=== PATIENT | female | born 1945 | race Caucasian/White ===

== ENCOUNTER 2017-08-02 12:27 | Inpatient (IN) | payer MEDICARE, BC ==
[~2017-08-02] VITALS: Ht 170.2 cm; Wt 77.6 kg
[2017-08-02] MEDS ORDERED: PROPAFENONE HC150 MG PO (12:58)
[2017-08-02] MEDS ORDERED: TOPROL XL25 MG PO (12:58)
[2017-08-02] MEDS ORDERED: MOBIC7.5 MG PO (12:58)
[2017-08-02] MEDS ORDERED: FEMARA2.5 MG PO (12:59)
[2017-08-02] MEDS ORDERED: BAYER CHEWABLE81 MG PO (12:59)
[2017-08-02] MEDS ORDERED: VITAMIN B-122500 MCG PO (12:59)
[2017-08-02] MEDS ORDERED: COUMADIN3 MG PO (13:00)
[2017-08-02] MEDS ORDERED: CARDIZEM60 MG PO (13:00)
[2017-08-02] MEDS ORDERED: HYDROCODONE-APA1 TAB PO (13:01)
[2017-08-02] MEDS ORDERED: OMEPRAZOLE20 M1 PO (13:02)
[2017-08-02 13:13] VITALS: BP 126/65; BMI 26.8
[2017-08-02 13:32] LABS: BASOPHILS 0.2 % (0-2); HEMATOCRIT 34.2 % (36.0-48.0); HEMOGLOBIN 10.8 g/dL (12-16); IMMATURE GRANULOCYTES 0.2 % (0-5); MCH 31.6 pg (26.0-34.0); MCHC 31.6 g/dL (31.0-37.0); MEAN PLATELET VOLUME 11.3 fL (7.4-10.4); MONOCYTES 8.1 % (2-11); NEUTROPHILS 77.5 % (40-80); PLATELET COUNT 215 10x3/uL (130-400); RBC 3.42 10x6/uL (4.00-5.40); RDW 16.3 % (11.5-14.5); WBC 6.3 10x3/uL (4.8-10.8)
[2017-08-02 13:35] LABS: HELICOBACTER PYLORI IGG POSITIVE (NEGATIVE)
[2017-08-02 13:38] LABS: ALBUMIN 3.1 g/dL (3.4-5.0); ANION GAP 12.9 mmol/L (8-16); BILIRUBIN - TOTAL 0.54 mg/dL (0.2-1.3); CALCIUM 8.6 mg/dL (8.5-10.1); CREATININE - SERUM 0.9 mg/dL (0.6-1.3); POTASSIUM - SERUM 3.9 mmol/L (3.5-5.1); PROTEIN - SERUM 6.1 g/dL (6.4-8.2)
[2017-08-02 16:20] VITALS: BP 114/61
[2017-08-02 16:53] LABS: INR 3.24 (0.85-1.17); PROTIME 32.3 SECONDS (11.6-15.0)
[2017-08-02 22:28] VITALS: BP 126/75
[2017-08-03 02:16] VITALS: BP 117/53
[2017-08-03 04:00] VITALS: BP 127/91
[2017-08-03 08:17] VITALS: BP 128/81
[2017-08-03 11:47] VITALS: BP 109/62
[2017-08-03 14:36] VITALS: BMI 26.8
[2017-08-03 17:21] VITALS: BP 139/76
[2017-08-03 21:43] VITALS: BP 138/102
[2017-08-04 00:10] VITALS: BP 122/44
[2017-08-04 04:21] VITALS: BP 148/75
[2017-08-04 05:56] LABS: INR 3.24 (0.85-1.17); PROTIME 32.3 SECONDS (11.6-15.0)
[2017-08-04 08:34] VITALS: BP 146/58
[2017-08-04 12:05] VITALS: BP 150/90
[2017-08-04] MEDS ORDERED: FLAGYL250 MG PO (13:07)
[2017-08-04] MEDS ORDERED: VIBRAMYCIN 100100 MG PO (13:07)
[2017-08-04] MEDS ORDERED: CARAFATE1 G/10 ML PO (13:09)
[2017-08-04] MEDS ORDERED: PROTONIX40 MG PO (13:09)
[2017-08-04 14:34] VITALS: Ht 170.2 cm; Wt 77.6 kg
[2017-08-04 16:07] VITALS: BP 126/78
== END 2017-08-04 16:00 | disposition home or self-care (01) | DRG 392 ==
LOC: D.OPS 12:27 → D.MS 12:29
PROVIDERS: Internal Medicine Gastroenterology; Legal Medicine
PROC: 0DJ08ZZ Inspection of Upper Intestinal Tract, Via Natural or Artificial Opening Endoscopic (ICD-10-PCS; principal; 2017-08-02 15:30)
DX: K92.81 Gastrointestinal mucositis (ulcerative) (principal); C79.51 Secondary malignant neoplasm of bone; D64.9 Anemia, unspecified; I10 Essential (primary) hypertension; K21.9 Gastro-esophageal reflux disease without esophagitis; G62.9 Polyneuropathy, unspecified; F17.200 Nicotine dependence, unspecified, uncomplicated; K29.70 Gastritis, unspecified, without bleeding; K25.9 Gastric ulcer, unspecified as acute or chronic, without hemorrhage or perforation; B96.81 Helicobacter pylori [H. pylori] as the cause of diseases classified elsewhere; I48.91 Unspecified atrial fibrillation; C50.919 Malignant neoplasm of unspecified site of unspecified female breast; K22.70 Barrett's esophagus without dysplasia; Z79.01 Long term (current) use of anticoagulants

== ENCOUNTER 2017-10-03 13:08 | Day surgery (SDC) | payer MEDICARE, BC ==
[~2017-10-03] VITALS: Ht 170.2 cm; Wt 70.5 kg
--- NOTE | ~2017-10-03 | OP ---
PATIENT NAME: RENAE ISLAS MEDICAL RECORD: [id number] :49 LOCATION:[facility] ADMISSION DATE: SURGEON: PAOLA BOUDREAUX DO DATE OF OPERATION: 10/03/2017 PROCEDURE: EGD with biopsies. INDICATION FOR PROCEDURE: Epigastric abdominal pain, past gastritis on EGD, and abnormal findings on imaging. SCOPE: Olympus video gastroscope. MEDICATIONS: Propofol 140 mg IV per anesthesia. ESTIMATED BLOOD LOSS: Less than 3 mL. COMPLICATIONS: None. FINDINGS: Informed consent was given. The patient was made comfortable with the above medication. After reaching an adequate level of sedation by slow IV push, the patient was placed on her left side. The endoscope was advanced under direct visualization through the mouth to the second portion of the duodenum. The upper, middle, and lower thirds of the esophagus appeared normal. At the GE junction, there was evidence of probable long-segment Bray's esophagus with few separate tongues. Cold forceps biopsies were taken to confirm this diagnosis. The endoscope was advanced beyond the GE junction into the stomach, where a large amount of retained food and fluid was visualized. The entire stomach exhibited a severe gastritis picture with diffuse edematous, congested, enlarged gastric folds with multiple sites of ulcerations and petechial sites that were extremely friable. As you approach the antrum and prepyloric region, there was thickening of the folds and hardening of the sites of the polk of the colon that made passage of the scope somewhat difficult. This is likely the cause for her symptoms as well as her retained food as this is causing a partial gastric outlet syndrome picture. The endoscope was able to be advanced through to the pylorus and into the duodenum. The visualized portions of the first and second portion of the duodenum appeared normal. There was a stenosed channel due to the enlarged and thickened folds that was approximately 9 cm in length. It was located at approximately 57 cm to 65 cm from the incisors. The tract was extremely friable and blood could be seen on the mucosa after passage of the endoscope. Multiple biopsies were taken from multiple sites within the stomach to help confirm diagnosis. The endoscope was withdrawn from the patient. The patient tolerated the procedure well and there were no complications. IMPRESSION: 1. 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 Biopsies taken. 2. Retained food and fluid within the stomach due to a partial outlet obstruction. 3. Severe gastritis with thickened folds and ulcerated site as well as hardening of the stomach. This is concerning for a possible lymphoma versus a malignant process. Multiple biopsies were taken to help establish a diagnosis. 4. Partial gastric outlet obstruction due to the hardening and thickening of the stomach. PLAN AND RECOMMENDATIONS: OPERATIVE REPORT [id number] RENAE ISLAS 1. Discharge home when recovery parameters are met. 2. Followup biopsy specimen results. 3. Recommend a liquid or pureed diet until a diagnosis can be made. 4. Need to consider routes of nutrition. Regarding the partial gastric outlet obstruction, a stent could be considered for temporary measures once a diagnosis is made and plan of treatment or therapy is being considered. Other potential therapies would include surgery or IV nutrition temporarily. Also, potentially, a jejunal feeding tube could be considered. Time is likely of the essence as if something is not done soon, passage of an endoscope through the distal stomach may become extremely difficult to impossible due to the ongoing process. 5. Follow up with Dr. Marin as scheduled. TRANSINT:[id number] Voice Confirmation ID: [id number] DOCUMENT ID: [id number] PAOLA BOUDREAUX DO at 1119 CC: [id number] DICTATION DATE: 10/03/17 1549 RAKER BUFFING WHEEL: 10/03/17 [address] [facility] 10/03/17 [id number] [place] [address]
[~2017-10-03 13:08] MED LIST: BAYER CHEWABLE81 MG PO; CARAFATE1 G/10 ML PO; CARDIZEM60 MG PO; COUMADIN3 MG PO; FEMARA2.5 MG PO; FLAGYL250 MG PO; HYDROCODONE-APA1 TAB PO; MOBIC7.5 MG PO; OMEPRAZOLE20 M1 PO; PROPAFENONE HC150 MG PO; PROTONIX40 MG PO; TOPROL XL25 MG PO; VIBRAMYCIN 100100 MG PO; VITAMIN B-122500 MCG PO
[2017-10-03 13:42] LABS: BASOPHILS 0.6 % (0-2); EOSINOPHILS 0.1 % (0-7); HEMATOCRIT 40.7 % (36.0-48.0); HEMOGLOBIN 13.1 g/dL (12-16); IMMATURE GRANULOCYTES 0.3 % (0-5); LYMPHOCYTES 14.8 % (15-50); MCHC 32.2 g/dL (31.0-37.0); MCV 96.4 fL (80.0-100.0); MEAN PLATELET VOLUME 10.1 fL (7.4-10.4); MONOCYTES 9.3 % (2-11); NEUTROPHILS 74.9 % (40-80); PLATELET COUNT 239 10x3/uL (130-400); RBC 4.22 10x6/uL (4.00-5.40); RDW 17.3 % (11.5-14.5); WBC 6.7 10x3/uL (4.8-10.8)
[2017-10-03 13:46] LABS: APTT 25.3 SECONDS (22.8-39.4); INR 1.15 (0.85-1.17); PROTIME 14.3 SECONDS (11.6-15.0)
[2017-10-03 13:47] LABS: CALCIUM 7.9 mg/dL (8.5-10.1); CARBON DIOXIDE 30.9 mmol/L (21.0-32.0); CREATININE - SERUM 0.9 mg/dL (0.6-1.3)
[2017-10-03 13:49] LABS: ANION GAP 10.1 mmol/L (8-16)
[2017-10-03] MEDS ORDERED: CYMBALTA30 MG PO (14:11)
[2017-10-03] MEDS ORDERED: NEURONTIN 300300 MG PO (14:11)
[2017-10-03 14:13] VITALS: BP 125/78; Ht 170.2 cm; Wt 70.5 kg
== END 2017-10-03 17:10 | disposition home or self-care (01) ==
LOC: D.OPS 13:08
PROVIDERS: Anesthesiology
DX: R10.13 Epigastric pain (principal); K22.70 Barrett's esophagus without dysplasia; K29.70 Gastritis, unspecified, without bleeding; K31.1 Adult hypertrophic pyloric stenosis; F17.200 Nicotine dependence, unspecified, uncomplicated; I25.10 Atherosclerotic heart disease of native coronary artery without angina pectoris; Z01.812 Encounter for preprocedural laboratory examination

== ENCOUNTER 2017-10-24 13:12 | Day surgery (SDC) | payer MEDICARE, BC ==
[~2017-10-24] VITALS: Ht 170.2 cm; Wt 65.8 kg
--- NOTE | ~2017-10-24 | OP ---
PATIENT NAME: RENAE ISLAS MEDICAL RECORD: [id number] :49 LOCATION:[facility] ADMISSION DATE: SURGEON: MIKAL GARCIA MD DATE OF OPERATION: 10/24/2017 PREOPERATIVE DIAGNOSES: 1. Partial gastric outlet obstruction. 2. Gastric cancer. 3. Atrial fibrillation. POSTOPERATIVE DIAGNOSES: 1. Partial gastric outlet obstruction. 2. Gastric cancer. 3. Atrial fibrillation. PROCEDURES: 1. Right subclavian vein port placement. 2. Fluoroscopic interpretation. SURGEON: Mikal Garcia MD REPORT OF PROCEDURE: The patient's right chest was prepped and draped in sterile fashion. A total of 10 mL of 1% lidocaine was infused into the subcutaneous tissues. A needle was used to cannulate the right subclavian vein. The guidewire was advanced with ease. Fluoro was used to note that the wire was in good position in the venous system. A skin incision was made on the left superolateral chest and a subcutaneous pouch was made over the pectoral fascia. A catheter was tunneled between this pouch and the wire exit site. The port was sutured to the pectoral fascia using interrupted 2-0 Prolenes times 2. The catheter was cut with a beveled tip at 27 cm. The dilator trocar device was placed over the wire and the wire and dilator were removed. The catheter tip was advanced through the trocar and the trocar was removed. The catheter tips rested in good position at the right atrial-superior vena caval junction. The catheter aspirated nonpulsatile dark blood and flushed easily with heparinized saline. The subcutaneous tissues were reapproximated with interrupted 3-0 Vicryl and the skin was closed with running subcutaneous 5-0 Monocryl. We then accessed the port and flushed it one last time. At this point, a dressing was applied. COMPLICATIONS: None. CONDITION: Stable. ANESTHESIA: TIVA and local. BLOOD LOSS: Minimal. TRANSINT:[id number] Voice Confirmation ID: [id number] DOCUMENT ID: [id number] OPERATIVE REPORT [id number] RENAE ISLAS MIKAL GARCIA MD at 0922 CC: JOSELUIS GAMEZ MD and PAOLA BOUDREAUX DO [id number] DICTATION DATE: 10/24/17 170 DISH MACHINE OPERATOR: 10/24/17 1808 [facility] [place] 10/24/17 [facility] [address] [id number]
--- NOTE | ~2017-10-24 | OP ---
PATIENT NAME: RENAE SILAS MEDICAL RECORD: [id number] :47 LOCATION:D.END ADMISSION DATE: SURGEON: PAOLA BOUDREAUX DO DATE OF OPERATION: 10/24/2017 PROCEDURE: EGD with duodenal stent placement. INDICATION FOR PROCEDURE: Malignant gastric outlet obstruction. SCOPE: Olympus therapeutic endoscope. MEDICATIONS: The patient was given propofol per anesthesia. Please see anesthesia report (TIVA). ESTIMATED BLOOD LOSS: Minimal. COMPLICATIONS: None. FINDINGS: Informed consent was given. The patient was made comfortable with the above medication. After reaching an adequate level of sedation by slow IV push, the patient was placed in the supine position. The endoscope was advanced under direct visualization through the mouth to the distal stomach. Appearances were consistent with past findings of severe metastatic burden of the stomach. This tapered down to the gastroduodenal segment where it was difficult to determine exactly where you are. The tumor burden was significant and there was a narrowing down to approximately 10 mm in diameter. Irregular gastroscope could pass through this opening, but the therapeutic scope could not. Balloon dilations were attempted from 10 mm up to 16 mm diameter, but the therapeutic scope still could not be passed. Using combination of guidewire and contrast in the bowel and the strictured segment, the narrowed segment due to tumor burden was bypassed with the guidewire. At this time, a duodenal self-expanding metal stent, which was fully uncovered, was placed over the guidewire and around the duodenal bend. The stent measured 120 mm in length and had a 20 mm diameter. After the stent was placed, positioning was confirmed using fluoroscopy. The waist was in the center of the stent with the distal portion around the bend of the duodenum and the proximal portion within the stomach. Appearances were satisfactory. The endoscope was withdrawn from the patient. The patient tolerated the procedure well and there were no complications. IMPRESSION: Severe tumor burden from metastatic breast cancer to stomach, causing a partial gastric outlet obstruction, status post self-expanding metal stent placement from the stomach to the duodenum. PLAN AND RECOMMENDATIONS: 1. Discharge home when recovery parameters are met. 2. Recommend a liquid diet for one week's time followed by a soft diet as tolerated. 3. Continue current medications. 4. The patient is set to begin chemotherapy tomorrow. It is unknown what chemotherapy will do to the tumor burden, but the stent is expected to be permanent. 5. Follow up in the GI clinic as needed. TRANSINT:[id number] Voice Confirmation ID: [id number] DOCUMENT ID: [id number] OPERATIVE REPORT [id number] RENAE ISLAS NATHAN A DO at 1524 CC: [id number] DICTATION DATE: 10/24/17 180 LAUNDRY CLERK: 10/24/17 1821 [facility] 10/24/17 [id number] [place] [address]
[~2017-10-24 13:12] MED LIST changes: +CYMBALTA30 MG PO; +NEURONTIN 300300 MG PO
[2017-10-24 14:45] VITALS: BP 120/67; Ht 170.2 cm; Wt 65.8 kg
[2017-10-24 14:50] LABS: BASOPHILS 0.3 % (0-2); EOSINOPHILS 0.3 % (0-7); HEMATOCRIT 37.6 % (36.0-48.0); HEMOGLOBIN 12.2 g/dL (12-16); IMMATURE GRANULOCYTES 0.4 % (0-5); LYMPHOCYTES 13.6 % (15-50); MCHC 32.4 g/dL (31.0-37.0); MCV 95.4 fL (80.0-100.0); MEAN PLATELET VOLUME 11.1 fL (7.4-10.4); MONOCYTES 7.2 % (2-11); NEUTROPHILS 78.2 % (40-80); RBC 3.94 10x6/uL (4.00-5.40); RDW 17.7 % (11.5-14.5); WBC 7.5 10x3/uL (4.8-10.8)
[2017-10-24 14:54] LABS: PLATELET COUNT 190 10x3/uL (130-400)
[2017-10-24] MEDS ORDERED: ELIQUIS2.5 MG PO (14:59)
[2017-10-24 15:33] LABS: ALBUMIN 3.1 g/dL (3.4-5.0); ALKALINE PHOSPHATASE 67 U/L (46-116); ALT (SGPT) 17 U/L (10-68); CALC OSMOLALITY 286 mosm/kg (275-300); CALCIUM 7.3 mg/dL (8.5-10.1); CARBON DIOXIDE 27.7 mmol/L (21.0-32.0); CHLORIDE - SERUM 104 mmol/L (98-107); CREATININE - SERUM 0.8 mg/dL (0.6-1.3); GLUCOSE 101 mg/dL (74-106); POTASSIUM - SERUM 3.4 mmol/L (3.5-5.1); SODIUM 144 mmol/L (136-145); UREA NITROGEN 12 mg/dL (7-18); eGFR NON AFRICAN AMERICAN 75 mL/min (90-120)
[2017-10-24 15:34] LABS: INR 1.03 (0.85-1.17); PROTIME 13.1 SECONDS (11.6-15.0)
[2017-10-24 15:49] LABS: APTT 21.5 SECONDS (22.8-39.4)
[2017-10-25] MEDS ORDERED: CARDIZEM60 MG PO (08:31)
== END 2017-10-24 20:20 | disposition home or self-care (01) ==
LOC: D.ENDO 13:12
PROVIDERS: Anesthesiology
DX: C16.9 Malignant neoplasm of stomach, unspecified (principal); K31.1 Adult hypertrophic pyloric stenosis; I48.91 Unspecified atrial fibrillation; Z01.812 Encounter for preprocedural laboratory examination

== ENCOUNTER 2017-10-25 00:56 | Inpatient (IN) | payer MEDICARE, BC ==
[~2017-10-25] VITALS: Ht 170.2 cm; Wt 69.2 kg
--- NOTE | ~2017-10-25 | OP ---
PATIENT NAME: RENAE ISLAS MEDICAL RECORD: [id number] :47 LOCATION:[facility] ADMISSION DATE:10/25/17 SURGEON: CURT ELIAS MD DATE OF OPERATION: 11/05/2017 PROCEDURE: DC cardioversion. INDICATION: Atrial fibrillation. PROCEDURE IN DETAIL: IV conscious sedation was performed per anesthesia. Continuous heart rate, O2 saturation, and blood pressure monitoring all undertaken, all of which remains stable. She received 1 shock at 275 joules restoring sinus rhythm. OVERALL IMPRESSION: Successful DC cardioversion from atrial fibrillation to sinus rhythm. TRANSINT:[id number] Voice Confirmation ID: [id number] DOCUMENT ID: [id number] CURT ELIAS MD at 0956 CC: [id number] DICTATION DATE: 11/05/17 0943 INKER: 11/05/17 1219 [facility] 11/06/17 [id number] [place] [address]
--- NOTE | ~2017-10-25 | OP ---
PATIENT NAME: RENAE ISLAS MEDICAL RECORD: [id number] :47 LOCATION:[facility] ADMISSION DATE:10/25/17 SURGEON: MIKAL GARCIA MD DATE OF OPERATION: 10/30/2017 PREOPERATIVE DIAGNOSES: 1. Gastric outlet obstruction. 2. Metastatic breast cancer to the stomach. 3. Gastric ulcers. 4. Gastritis. 5. Atrial fibrillation. POSTOPERATIVE DIAGNOSES: 1. Gastric outlet obstruction. 2. Metastatic breast cancer to the stomach. 3. Gastric ulcers. 4. Gastritis. 5. Atrial fibrillation. PROCEDURE: A 20-Ku[place]i percutaneous endoscopic jejunostomy placement. SURGEON: Mikal Garcia MD REPORT OF PROCEDURE: The patient's abdomen was prepped and draped. An Olympus endoscope was advanced through the mouth and esophagus. I was able to pass into the stomach and could see the stent extending out of the patient's duodenum. I found an area on the antrum of the stomach to house our tube. A total of 5 mL of 1% lidocaine was infused into the subcutaneous tissues. A skin incision was then made with an 11 blade. Angiocath needle was placed through the abdominal wall into the gastric lumen. A wire was passed through this Angiocath. The wire was grasped and pulled out through the patient's mouth and esophagus. At this point, we fixed this to the 20-Ku[place]i PEG tube. The PEG tube was pulled through the mouth and esophagus through the anterior abdominal wall and gastric lumen and out through the abdominal wall. Once in position, the endoscope was advanced back through the patient's endoscopy. We were able to pass this through the endoscopy tube into the PEG tube and out through the external orifice of the PEG tube. The PEG tube was then pulled free. We then affixed the Endo snare to a 20-Ku[place]i gastrojejunostomy tube. The jejunal end was affixed to the snare and pulled through the anterior abdominal wall and pulled tightly until the entire tube was in the gastric lumen. The balloon was infused with a total of 10 mL of sterile water. Once the tube was in place, it was pulled up to the anterior abdominal wall. The endoscope was placed back into the abdomen. We were able to position the jejunal portion of the tube through the stent into the second and third portion of the duodenum. At this point, I could not get the scope or the jejunal portion of the tube to pass any further. There was a lot of inflammation to the tissue. I went ahead and shot some contrast through the jejunal end and I could see that there was some passage of contrast through the third portion of the duodenum. I did not feel there was complete obstruction. I went ahead and just left the distal end of the tube in this position. We then removed the insufflation from the stomach and the endoscope was removed. COMPLICATIONS: None. CONDITION: Stable. OPERATIVE REPORT [id number] RENAE ISLAS ANESTHESIA: TIVA. BLOOD LOSS: Minimal. TRANSINT:[id number] Voice Confirmation ID: [id number] DOCUMENT ID: [id number] MIKAL GARCIA MD at 1144 CC: JOSELUIS GAMEZ MD and PAOLA BOUDREAUX DO [id number] DICTATION DATE: 10/30/17 1140 PERIANESTHESIA MANAGER: 10/30/17 1252 ADM IN [facility] [address] [place] [address]
--- NOTE | ~2017-10-25 | HEMODYNAMI ---
PATIENT:RENAE ISLSA MEDICAL RECORD: [id number] : 49 LOCATION:[facility] ADMISSION DATE: 10/25/17 Generatedon:11/06/20178:18 Patient name: RENAE ISLAS Patient #: [id number] SSN: : 1945 Date of study: 11/05/2017 Page: Of Hemodynamic Procedure Report Patient Data Patient Demographics Procedure consent was obtained First Name: RENAE Gender: Female Last Name: ROSHAN : 1945 [facility] Initial: A Age: 72 year(s) Patient #: [id number] Race: Unknown Additional ID: [id number] Contact details Address: [address] [place] [address] State: [place] City: [place] Zip code: [address] Admission Admission Data Admission Date: 10/25/2017 Admission Time: 6:13 Room #: 2202 Procedure Procedure Types Cath Procedure Diagnostic Procedure Cardioversion External Procedure Description Procedure Date Procedure Date: 11/05/2017 Procedure Start Time: 9:42 Procedure End Time: 9:48 Procedure Staff Name Function Britt Juarez RT Monitor Virgil Prakash RT Cashier Clerk Jorge Augustine RN Nurse Jorje Martinez MD Additional personnel Иван Espinosa MD Performing Physician Procedure Data Cath Procedure Fluoroscopy Diagnostic fluoroscopy Total fluoroscopy Time: 0 time: 0 min min Diagnostic fluoroscopy Total fluoroscopy dose: 0 dose: 0 mGy mGy Contrast Material Contrast Material Type Amount (ml) Isovue 300 0 Estimated blood loss: 0 ml Procedure Complications No complications Procedure Medications Medication Administration Route Dosage Oxygen etCO2 Nasal cannula 6 l/min Refer to Anesthesia Notes for Sedation Medications Hemodynamics Rest Pre Cath Intra NCS Post Cath Vital Signs Time Heart Resp SPO2 etCO2 NIBP Rhythm Pain Sedation Rate (ipm) (%) (mmHg) (mmHg) Status Level (bpm) 9:39:51 76 24 91 14.3 104/64(80) NSR 0 (11) 10(A) , No pain 9:44:29 72 19 98 27.1 103/52(76) NSR 0 (11) 10(A) , No pain 9:47:17 70 12 98 27.9 84/54(63) NSR 0 (11) 10(A) , No pain Medications Time Medication Route Dose Verified Delivered Reason Notes Effectiven ess by by 9:27:05 Oxygen etCO2 6 Иван Patel Per Nasal l/min Jesús Augustine RN physician cannula 9:27:13 Refer to Иван Patel Per Anesthesia Jesús Augustine RN physician Notes for Sedation Medications Procedure Log Time Note 9:15:12 Virgil Prakash RT(R) sent for patient. Start room use. 9:24:18 Time tracking: Regular hours (M-F 7:00 - 5:00) 9:24:23 Plan of Care:Hemodynamics will remain stable., Cardiac rhythm will remain stable., Comfort level will be maintained., Respiratory function will remain adequate., Patient/ family verbilizes understanding of procedure., Procedure tolerated without complication., Recovers from procedure without complications.. 9:27:05 Oxygen 6 l/min etCO2 Nasal cannula was administered by Jorge Augustine RN; Per physician; 9:27:13 Refer to Anesthesia Notes for Sedation Medications was administered by Jorge Augustine RN; Per physician; 9:32:25 Warm blankets applied, and richar hugger turned on for patient comfort. 9:32:25 Patient received from Med/Surg to CCL 1 Alert and oriented. Tansferred to table in Supine position. 9:32:26 Correct patient and procedure confirmed by team. 9:32:27 Signed procedure consent form obtained from patient. 9:32:28 ECG and BP/O2 sat monitors applied to patient. 9:32:29 Full Disclosure recording started 9:39:00 Vital chart was started 9:39:24 Rhythm: atrial fibrillation 9:39:34 H&P Date Dictated: 11/05/2017 Within 30 days and on chart., H&P Addendum completed by physician on day of procedure. (MUST COMPLETE FOR ALL OUTPATIENTS). 9:39:36 Pre-procedure instructions explained to patient. 9:39:37 Pre-op teaching completed and patient verbalized understanding. 9:39:41 Family unavailable. 9:39:52 Patient NPO since Midnight. 9:39:55 Is the patient allergic to Iodine/contrast media? No. 9:40:01 Is patient on blood thinner?Yes 9:40:06 ACC The patient was administered the following blood thiners within the last 24 hours: Eliquis 9:40:16 Patient diabetic? No. 9:40:22 Previous problem with sedation/anesthesia? No ? 9:40:24 Snore? Yes 9:40:26 Sleep apnea? No 9:40:27 Deviated septum? No 9:40:28 Sticks out tongue? Yes 9:40:28 Opens mouth fully? Yes 9:40:36 Airway obstruction? No ? 9:40:44 Dentures? No ? 9:40:49 Patient pain scale 0/10 ?. 9:41:15 IV patent on arrival in port with 0.9% NaCl at KVO. 9:41:17 Lab results completed and on chart. 9:41:20 Alarms reviewed by R. N. 9:41:20 Sharps counted by scrub and verified by R.N. 9:41:22 Final Timeout: patient, procedure, and site verified with staff and physician. All members of the team are in agreement. 9:41:22 --------ALL STOP TIME OUT------ 9:41:29 Physical assessment completed. ASA score P 4 - A patient with severe systemic disease that is a constant threat to life as per Иван Espinosa MD. 9:41:37 Sedation plan: TIVA Medication:Propofol 9:42:24 Jorje Martinez MD present and monitoring patient for TIVA. 9:42:27 Procedure started. 9:42:28 Quick combo pads placed on patients chest and back. 9:42:32 Defibrillator synced and charged to 275 Joules. 9:42:34 Shock delivered. 9:42:39 Patient cardioverted to sinus rhythm . 9:42:44 Procedure ended.(Physican Out) 9:43:48 Fluoroscopy time 00.00 minutes. 9:43:50 Fluoroscopy dose: 0 mGy 9:43:50 Flurop Dose total: 0 9:43:52 Contrast amount:Isovue 300 0ml. 9:44:22 Post-procedure physical assessment completed. ASA score P 2 - A patient with mild systemic disease as per Иван Espinosa MD. 9:44:34 Post Procedure Pulses reassessed and unchanged 9:44:37 Post procedure rhythm: unchanged. 9:44:40 Estimated blood loss: 0 ml 9:44:42 Patient needs reinforcement of post procedure teaching. 9:44:42 Post procedure instruction explained to patient.Patient verbalizes understanding. 9:44:48 Procedure and supply charges have been captured, reviewed, submitted and are correct. 9:44:51 Procedure Complication : No complications 9:45:10 Quick Combo opened to sterile field. 9:47:53 See physician's report for complete and final results. 9:47:53 Vital chart was stopped 9:47:59 Report given to Med/Surg. 9:48:02 Patient transfered to Med/Surg with Bed. 9:48:04 Full Disclosure recording stopped 9:48:04 Procedure ended. 9:48:46 End room use (Document Last) Device Usage Item Manufacture Quantity Catalog Hospital Part Current Minimal Lot# / Name Number Charge Number Stock Stock Brie al# Code Quick [employer] 1 [id number] Combo Signature Audit [place] Stage Time Signature Unsigned Intra-Procedure 11/05/2017 Virgil Prakash RT(R) 9:49:04 AM RT(R) 11/06/2017 8:17:41 AM Intra-Procedure 11/06/2017 Virgil Prakash 8:18:22 AM RT(R) Signatures Monitor : Britt Signature : Counts RT Date : Time : [address] [id number]
[~2017-10-25 00:56] MED LIST changes: +ELIQUIS2.5 MG PO
[2017-10-25 01:58] LABS: BASOPHILS 0.1 % (0-2); EOSINOPHILS 0 % (0-7); HEMATOCRIT 36.9 % (36.0-48.0); HEMOGLOBIN 12.1 g/dL (12-16); IMMATURE GRANULOCYTES 0.3 % (0-5); MCH 30.8 pg (26.0-34.0); MCHC 32.8 g/dL (31.0-37.0); MCV 93.9 fL (80.0-100.0); MEAN PLATELET VOLUME 10.7 fL (7.4-10.4); MONOCYTES 6.3 % (2-11); NEUTROPHILS 87.3 % (40-80); PLATELET COUNT 228 10x3/uL (130-400); RBC 3.93 10x6/uL (4.00-5.40); RDW 17.2 % (11.5-14.5); WBC 10.7 10x3/uL (4.8-10.8)
[2017-10-25 02:11] LABS: ALBUMIN 2.8 g/dL (3.4-5.0); ALKALINE PHOSPHATASE 209 U/L (46-116); ALT (SGPT) 164 U/L (10-68); AMYLASE - SERUM 119 U/L (25-115); CALC OSMOLALITY 285 mosm/kg (275-300); CALCIUM 7.4 mg/dL (8.5-10.1); CHLORIDE - SERUM 104 mmol/L (98-107); CREATININE - SERUM 0.8 mg/dL (0.6-1.3); GLUCOSE 133 mg/dL (74-106); LIPASE 666 U/L (73-393); PROTEIN - SERUM 6.1 g/dL (6.4-8.2); SODIUM 143 mmol/L (136-145); UREA NITROGEN 11 mg/dL (7-18); eGFR NON AFRICAN AMERICAN 75 mL/min (90-120)
[2017-10-25 02:12] LABS: POTASSIUM - SERUM 2.7 mmol/L (3.5-5.1)
[2017-10-25 02:42] LABS: APPEARANCE HAZY (CLEAR); BILIRUBIN NEGATIVE (NEGATIVE); COLOR YELLOW (YELLOW); GLUCOSE NEGATIVE (NEGATIVE); KETONE MODERATE mg/dL (NEGATIVE); NITRITE NEGATIVE (NEGATIVE); PROTEIN 1+ mg/dL (NEGATIVE); SPECIFIC GRAVITY 1.015 (1.005-1.020)
[2017-10-25 02:45] LABS: BACTERIA FEW /hpf (NONE SEEN); EPITHELIAL CELLS 0-5 /hpf (0-5); RED CELLS - URINE 0-5 /hpf (0-5); WHITE CELLS - URINE 0-5 /hpf (0-5)
[2017-10-25 06:06] LABS: D-DIMER-QUANTITATIVE 2.8 ug/mLFEU (0.20-0.54)
[2017-10-25 06:11] LABS: INR 1.05 (0.85-1.17); PROTIME 13.3 SECONDS (11.6-15.0)
[2017-10-25 06:13] LABS: APTT 24.7 SECONDS (22.8-39.4)
[2017-10-25 06:17] LABS: CKMB 2.7 U/L (0.0-3.6); CREATINE KINASE 84 UL (21-215)
[2017-10-25 08:10] VITALS: BP 125/67
[2017-10-25 08:24] VITALS: BP 125/67; BMI 22.7
[2017-10-25] MEDS ORDERED: CARDIZEM60 MG PO (08:31)
[2017-10-25 11:21] VITALS: BP 140/68
[2017-10-25 13:48] VITALS: BMI 22.7
[2017-10-25 16:03] VITALS: BP 132/76
[2017-10-25 20:00] VITALS: BP 122/70
[2017-10-25 20:49] VITALS: Ht 170.2 cm; Wt 69.2 kg
[2017-10-26] VITALS: BP 126/70
[2017-10-26 04:00] VITALS: BP 130/70
[2017-10-26 04:22] LABS: BASOPHILS 0 % (0-2); EOSINOPHILS 0 % (0-7); HEMATOCRIT 33.8 % (36.0-48.0); HEMOGLOBIN 10.9 g/dL (12-16); IMMATURE GRANULOCYTES 0.2 % (0-5); LYMPHOCYTES 7.8 % (15-50); MCH 30.2 pg (26.0-34.0); MCHC 32.2 g/dL (31.0-37.0); MCV 93.6 fL (80.0-100.0); MEAN PLATELET VOLUME 10.7 fL (7.4-10.4); MONOCYTES 6.1 % (2-11); NEUTROPHILS 85.9 % (40-80); PLATELET COUNT 194 10x3/uL (130-400); RBC 3.61 10x6/uL (4.00-5.40); RDW 17.4 % (11.5-14.5); WBC 8.4 10x3/uL (4.8-10.8)
[2017-10-26 04:40] LABS: ALBUMIN 2.8 g/dL (3.4-5.0); ALKALINE PHOSPHATASE 192 U/L (46-116); BILIRUBIN - TOTAL 0.43 mg/dL (0.2-1.3); CALC OSMOLALITY 282 mosm/kg (275-300); CARBON DIOXIDE 27.8 mmol/L (21.0-32.0); CHLORIDE - SERUM 104 mmol/L (98-107); CREATININE - SERUM 0.7 mg/dL (0.6-1.3); GLUCOSE 116 mg/dL (74-106); PROTEIN - SERUM 5.8 g/dL (6.4-8.2); SODIUM 142 mmol/L (136-145); UREA NITROGEN 10 mg/dL (7-18); eGFR NON AFRICAN AMERICAN 88 mL/min (90-120)
[2017-10-26 04:44] LABS: POTASSIUM - SERUM 3.5 mmol/L (3.5-5.1)
[2017-10-26 04:45] LABS: ALT (SGPT) 104 U/L (10-68); CALCIUM 6.6 mg/dL (8.5-10.1)
[2017-10-26 09:56] VITALS: BP 120/65
[2017-10-26 12:23] VITALS: BP 134/73
[2017-10-26 16:59] VITALS: BP 144/66
[2017-10-26 19:00] VITALS: BP 138/73
[2017-10-27 00:26] VITALS: BP 132/74
[2017-10-27 04:00] VITALS: BP 116/69
[2017-10-27 09:24] VITALS: BP 138/86
[2017-10-27 10:06] LABS: ALBUMIN 2.8 g/dL (3.4-5.0); ALKALINE PHOSPHATASE 150 U/L (46-116); BILIRUBIN - TOTAL 0.51 mg/dL (0.2-1.3); CALCIUM 7.1 mg/dL (8.5-10.1); CARBON DIOXIDE 25.9 mmol/L (21.0-32.0); CHLORIDE - SERUM 104 mmol/L (98-107); CREATININE - SERUM 0.6 mg/dL (0.6-1.3); GLUCOSE 90 mg/dL (74-106); LIPASE 94 U/L (73-393); PROTEIN - SERUM 5.8 g/dL (6.4-8.2); SODIUM 142 mmol/L (136-145); eGFR NON AFRICAN AMERICAN > 90 mL/min (90-120)
[2017-10-27 10:07] LABS: CALC OSMOLALITY 280 mosm/kg (275-300); UREA NITROGEN 7 mg/dL (7-18)
[2017-10-27 10:09] LABS: ALT (SGPT) 65 U/L (10-68); POTASSIUM - SERUM 2.8 mmol/L (3.5-5.1)
[2017-10-27 10:36] LABS: BASOPHILS 0.2 % (0-2); EOSINOPHILS 0.3 % (0-7); HEMATOCRIT 35.6 % (36.0-48.0); HEMOGLOBIN 11.7 g/dL (12-16); IMMATURE GRANULOCYTES 0.3 % (0-5); LYMPHOCYTES 10.3 % (15-50); MCH 30.9 pg (26.0-34.0); MCHC 32.9 g/dL (31.0-37.0); MCV 93.9 fL (80.0-100.0); MEAN PLATELET VOLUME 11.7 fL (7.4-10.4); MONOCYTES 7.5 % (2-11); NEUTROPHILS 81.4 % (40-80); PLATELET COUNT 190 10x3/uL (130-400); RBC 3.79 10x6/uL (4.00-5.40); WBC 10.1 10x3/uL (4.8-10.8)
[2017-10-27 11:38] VITALS: BP 127/73
[2017-10-27 20:30] VITALS: BP 104/80
[2017-10-28 00:30] VITALS: BP 137/72
[2017-10-28 04:30] VITALS: BP 132/68
[2017-10-28 08:29] VITALS: BP 122/92
[2017-10-28 11:56] LABS: ALBUMIN 2.7 g/dL (3.4-5.0); ALKALINE PHOSPHATASE 125 U/L (46-116); ALT (SGPT) 49 U/L (10-68); BILIRUBIN - TOTAL 0.57 mg/dL (0.2-1.3); CALC OSMOLALITY 277 mosm/kg (275-300); CARBON DIOXIDE 25.7 mmol/L (21.0-32.0); CHLORIDE - SERUM 102 mmol/L (98-107); CREATININE - SERUM 0.6 mg/dL (0.6-1.3); GLUCOSE 114 mg/dL (74-106); LIPASE 79 U/L (73-393); PROTEIN - SERUM 5.4 g/dL (6.4-8.2); SODIUM 140 mmol/L (136-145); UREA NITROGEN 6 mg/dL (7-18); eGFR NON AFRICAN AMERICAN > 90 mL/min (90-120)
[2017-10-28 11:58] LABS: CALCIUM 6.9 mg/dL (8.5-10.1)
[2017-10-28 15:47] VITALS: BP 128/78
[2017-10-28 21:01] VITALS: BP 112/68
[2017-10-28 23:57] VITALS: BP 101/53
[2017-10-29 05:25] VITALS: BP 110/56
[2017-10-29 06:14] LABS: BASOPHILS 0.2 % (0-2); EOSINOPHILS 2.7 % (0-7); HEMATOCRIT 33.7 % (36.0-48.0); HEMOGLOBIN 11.1 g/dL (12-16); IMMATURE GRANULOCYTES 0.4 % (0-5); LYMPHOCYTES 16.6 % (15-50); MCH 30.5 pg (26.0-34.0); MCHC 32.9 g/dL (31.0-37.0); MCV 92.6 fL (80.0-100.0); MEAN PLATELET VOLUME 11.4 fL (7.4-10.4); MONOCYTES 9.4 % (2-11); NEUTROPHILS 70.7 % (40-80); PLATELET COUNT 163 10x3/uL (130-400); RBC 3.64 10x6/uL (4.00-5.40); RDW 17.4 % (11.5-14.5); WBC 8.1 10x3/uL (4.8-10.8)
[2017-10-29 06:47] LABS: ALBUMIN 2.4 g/dL (3.4-5.0); ALKALINE PHOSPHATASE 92 U/L (46-116); ALT (SGPT) 37 U/L (10-68); BILIRUBIN - TOTAL 0.51 mg/dL (0.2-1.3); CALC OSMOLALITY 279 mosm/kg (275-300); CARBON DIOXIDE 26.9 mmol/L (21.0-32.0); CHLORIDE - SERUM 107 mmol/L (98-107); CREATININE - SERUM 0.6 mg/dL (0.6-1.3); GLUCOSE 97 mg/dL (74-106); LIPASE 94 U/L (73-393); POTASSIUM - SERUM 3.4 mmol/L (3.5-5.1); PROTEIN - SERUM 5.2 g/dL (6.4-8.2); SODIUM 142 mmol/L (136-145); UREA NITROGEN 5 mg/dL (7-18); eGFR NON AFRICAN AMERICAN > 90 mL/min (90-120)
[2017-10-29 08:24] VITALS: BP 118/65
[2017-10-29 11:12] VITALS: BP 112/73
[2017-10-29 16:26] VITALS: BP 125/65
[2017-10-29 21:52] VITALS: BP 110/62
[2017-10-30] VITALS (9 sets, daily range): BP systolic 109–141; BP diastolic 50–95
[2017-10-31 04:26] VITALS: BP 125/82
[2017-10-31 08:06] VITALS: BP 111/76
[2017-10-31 12:13] VITALS: BP 119/71
[2017-10-31 15:58] VITALS: BP 130/64
[2017-10-31 20:51] VITALS: BP 134/65
[2017-10-31 23:58] VITALS: BP 148/68
[2017-11-01 04:30] VITALS: BP 106/71
[2017-11-01 08:18] VITALS: BP 103/65
[2017-11-01 12:44] VITALS: BP 101/57
[2017-11-01 16:14] VITALS: BP 92/57
[2017-11-01 20:58] VITALS: BP 108/54
[2017-11-02] VITALS (8 sets, daily range): BP systolic 86–116; BP diastolic 36–66
[2017-11-02 02:15] LABS: APPEARANCE CLEAR (CLEAR); BILIRUBIN NEGATIVE (NEGATIVE); COLOR YELLOW (YELLOW); GLUCOSE NEGATIVE (NEGATIVE); KETONE SMALL mg/dL (NEGATIVE); NITRITE NEGATIVE (NEGATIVE); PROTEIN NEGATIVE (NEGATIVE); SPECIFIC GRAVITY 1.015 (1.005-1.020); UROBILINOGEN NORMAL (NORMAL)
[2017-11-02 05:02] LABS: BASOPHILS 0 % (0-2); EOSINOPHILS 0.1 % (0-7); HEMATOCRIT 35.1 % (36.0-48.0); HEMOGLOBIN 11.7 g/dL (12-16); IMMATURE GRANULOCYTES 0.4 % (0-5); LYMPHOCYTES 3.7 % (15-50); MCH 30.4 pg (26.0-34.0); MCHC 33.3 g/dL (31.0-37.0); MCV 91.2 fL (80.0-100.0); MEAN PLATELET VOLUME 11.4 fL (7.4-10.4); MONOCYTES 0.4 % (2-11); NEUTROPHILS 95.4 % (40-80); PLATELET COUNT 164 10x3/uL (130-400); RBC 3.85 10x6/uL (4.00-5.40); RDW 17.4 % (11.5-14.5); WBC 9.4 10x3/uL (4.8-10.8)
[2017-11-02 05:23] LABS: CALC OSMOLALITY 270 mosm/kg (275-300); CARBON DIOXIDE 26.6 mmol/L (21.0-32.0); CHLORIDE - SERUM 98 mmol/L (98-107); CREATININE - SERUM 0.8 mg/dL (0.6-1.3); GLUCOSE 116 mg/dL (74-106); MAGNESIUM - SERUM 1.8 mg/dL (1.8-2.4); POTASSIUM - SERUM 3.3 mmol/L (3.5-5.1); SODIUM 134 mmol/L (136-145); UREA NITROGEN 18 mg/dL (7-18); eGFR NON AFRICAN AMERICAN 75 mL/min (90-120)
[2017-11-02 05:26] LABS: CALCIUM 6.9 mg/dL (8.5-10.1)
[2017-11-03 00:27] VITALS: BP 98/54
[2017-11-03 04:17] VITALS: BP 116/48
[2017-11-03 06:20] LABS: BASOPHILS 0 % (0-2); EOSINOPHILS 0.6 % (0-7); HEMATOCRIT 34.3 % (36.0-48.0); HEMOGLOBIN 11.5 g/dL (12-16); IMMATURE GRANULOCYTES 44.4 % (0-5); LYMPHOCYTES 5.4 % (15-50); MCH 30.7 pg (26.0-34.0); MCHC 33.5 g/dL (31.0-37.0); MCV 91.5 fL (80.0-100.0); MEAN PLATELET VOLUME 10.5 fL (7.4-10.4); NEUTROPHILS 48.6 % (40-80); PLATELET COUNT 166 10x3/uL (130-400); RBC 3.75 10x6/uL (4.00-5.40); RDW 17.3 % (11.5-14.5)
[2017-11-03 06:22] LABS: WBC 3.1 10x3/uL (4.8-10.8)
[2017-11-03 06:36] LABS: CARBON DIOXIDE 26.7 mmol/L (21.0-32.0); CHLORIDE - SERUM 101 mmol/L (98-107); CREATININE - SERUM 0.6 mg/dL (0.6-1.3); POTASSIUM - SERUM 3.6 mmol/L (3.5-5.1); SODIUM 136 mmol/L (136-145); UREA NITROGEN 15 mg/dL (7-18); eGFR NON AFRICAN AMERICAN > 90 mL/min (90-120)
[2017-11-03 06:57] LABS: CALC OSMOLALITY 276 mosm/kg (275-300); CALCIUM 6.6 mg/dL (8.5-10.1); GLUCOSE 169 mg/dL (74-106); PHOSPHOROUS 1.1 mg/dL (2.5-4.9)
[2017-11-03 07:19] LABS: ALBUMIN 1.8 g/dL (3.4-5.0)
[2017-11-03 08:10] VITALS: BP 103/44
[2017-11-03 12:08] VITALS: BP 100/57
[2017-11-03 20:02] VITALS: BP 107/47
[2017-11-03 23:38] VITALS: BP 80/43
[2017-11-04 04:49] VITALS: BP 90/43
[2017-11-04 08:20] VITALS: BP 100/40
[2017-11-04 13:01] VITALS: BP 94/45
[2017-11-04 16:03] VITALS: BP 119/49
[2017-11-04 20:33] VITALS: BP 92/49
[2017-11-04 23:55] VITALS: BP 90/49
[2017-11-05 04:22] VITALS: BP 91/46
[2017-11-05 05:43] LABS: CHLORIDE - SERUM 100 mmol/L (98-107); CREATININE - SERUM 0.6 mg/dL (0.6-1.3); GLUCOSE 125 mg/dL (74-106); POTASSIUM - SERUM 3.8 mmol/L (3.5-5.1); SODIUM 133 mmol/L (136-145); eGFR NON AFRICAN AMERICAN > 90 mL/min (90-120)
[2017-11-05 05:58] LABS: CALC OSMOLALITY 268 mosm/kg (275-300); CALCIUM 6.8 mg/dL (8.5-10.1); UREA NITROGEN 19 mg/dL (7-18)
[2017-11-05 10:36] VITALS: BP 101/36
[2017-11-05 13:35] VITALS: BP 93/56
[2017-11-05 18:39] VITALS: BP 110/49
[2017-11-05 20:58] VITALS: BP 79/49
[2017-11-05 21:05] VITALS: BP 95/58; BP 98/58
[2017-11-06 00:40] VITALS: BP 108/60
[2017-11-06 09:10] VITALS: BP 113/59
[2017-11-06] MEDS ORDERED: CARDIZEM60 MG PO (09:52)
[2017-11-06] MEDS ORDERED: LANOXIN250 MCG PO (09:52)
[2017-11-06] MEDS ORDERED: BETAPACE 120 M120 MG PO (09:52)
[2017-11-06] MEDS ORDERED: PEPCID20 MG PO (09:53)
[2017-11-06] MEDS ORDERED: TRANSDERM-SCO1 PATCH TRANSDERM (09:54)
[2017-11-06] MEDS ORDERED: ZOFRAN ODT4 MG/UDTAB PO (09:55)
[2017-11-06] MEDS ORDERED: NUTRISOURCE FI1 EACH PEG (09:59)
[2017-11-06] MEDS ORDERED: PHENERGAN25 M1 PO (10:00)
== END 2017-11-06 12:42 | disposition home health service (06) | DRG 381 ==
LOC: D.ER 00:56 → D.EDHOLD 06:13 → D.MS 06:13 → D.M2 06:13 → D.MS 10-29 11:53
PROVIDERS: Family Medicine; Internal Medicine Gastroenterology; Legal Medicine
PROC: 0D798DZ Dilation of Duodenum with Intraluminal Device, Via Natural or Artificial Opening Endoscopic (ICD-10-PCS; principal; 2017-10-24)
PROC: 0JH63WZ Insertion of Totally Implantable Vascular Access Device into Chest Subcutaneous Tissue and Fascia, Percutaneous Approach (ICD-10-PCS; 2017-10-24)
PROC: 05H533Z Insertion of Infusion Device into Right Subclavian Vein, Percutaneous Approach (ICD-10-PCS; 2017-10-24)
PROC: B5161ZA Fluoroscopy of Right Subclavian Vein using Low Osmolar Contrast, Guidance (ICD-10-PCS; 2017-10-24)
PROC: 0DJ08ZZ Inspection of Upper Intestinal Tract, Via Natural or Artificial Opening Endoscopic (ICD-10-PCS; 2017-10-27)
PROC: 0DHA3UZ Insertion of Feeding Device into Jejunum, Percutaneous Approach (ICD-10-PCS; 2017-10-30)
PROC: 3E03305 Introduction of Other Antineoplastic into Peripheral Vein, Percutaneous Approach (ICD-10-PCS; 2017-10-31)
DX: K31.1 Adult hypertrophic pyloric stenosis (principal); K51.00 Ulcerative (chronic) pancolitis without complications; C78.89 Secondary malignant neoplasm of other digestive organs; C79.51 Secondary malignant neoplasm of bone; C78.4 Secondary malignant neoplasm of small intestine; I48.91 Unspecified atrial fibrillation; C50.919 Malignant neoplasm of unspecified site of unspecified female breast; E87.6 Hypokalemia; R74.8 Abnormal levels of other serum enzymes; D64.9 Anemia, unspecified; R19.7 Diarrhea, unspecified